=== PATIENT | female | born 1990 | race Caucasian/White ===

== ENCOUNTER 2022-05-16 00:27 | Emergency (ER) | payer OTHER ==
[~2022-05-16] VITALS: Ht 165.1 cm; Wt 72.6 kg
[2022-05-16 00:29] VITALS: BP 158/88
--- NOTE | 2022-05-16 00:31 | NUR ---
PT [facility] ER BED 7
[2022-05-16 00:37] VITALS: BP 106/70
--- NOTE | 2022-05-16 00:40 | NUR ---
Dr. Colmenares examining patient.
--- NOTE | 2022-05-16 00:45 | NUR ---
31YR OLD FEMALE BIB EMS C/O "CP"/PRESSURE SOB XTODAY. PT STATES SHE SMOKED WEED, HAD 3-4SHOTS OF VODKA, AND TOOK SOME COLD MEDICINE. PALPATIONS AND SOB SINCE AFTER TAKING ALL THREE. PT IS A&OX4 RESP EVEN AND UNLABORED. PT ON BEDSIDE PRODUCTION LABORER. HOB ELEVATED BED AT LOWEST POSITION. ER MD AT BEDSIDE. SULFA ASTHMA
[2022-05-16] MEDS ORDERED: ATA25 PO (00:53)
[2022-05-16] MEDS ORDERED: LORazepam 0.5 MG TAB PO ONE (00:55)
--- NOTE | 2022-05-16 01:07 | NUR ---
Patient discharged with v/s stable. Written and verbal after care instructions given and explained. Patient verbalized understanding. Ambulatory with steady gait. All questions addressed prior to discharge. Advised to follow up with PMD.
== END 2022-05-16 01:07 | disposition home or self-care (01) ==
LOC: MED 00:27
DX: F41.0 Panic disorder [episodic paroxysmal anxiety] (principal); R00.2 Palpitations; F12.90 Cannabis use, unspecified, uncomplicated; Z79.899 Other long term (current) drug therapy
CPT/HCPCS: 93005; 99283